=== PATIENT | male | born 1990 | race Caucasian/White ===

== ENCOUNTER 2021-08-21 18:50 | Emergency (ER) | payer OTHER, MEDICAID, SELFPAY ==
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
[2021-08-21 21:01] VITALS: BP 155/91; PULSE 106; RESP 16; TEMP 36.8; O2SAT 100; BMI 40.1
[2021-08-21 23:26] VITALS: BP 146/79; PULSE 90; RESP 20; TEMP 36.8; O2SAT 99
[2021-08-22] MEDS: Ibuprofen 800 MG TABLET PO (00:34)
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
== END 2021-08-22 01:45 | disposition home or self-care (01) ==
PROVIDERS: Emergency Provider Emergency Medicine; PCP Internal Medicine
DX: M54.50 Low back pain, unspecified (principal); M54.6 Pain in thoracic spine; Z79.899 Other long term (current) drug therapy
CPT/HCPCS: 72020; 72070; 99283

== ENCOUNTER 2022-01-31 12:34 | Emergency (ER) | payer OTHER, MEDICAID, SELFPAY ==
[2022-01-31 13:34] VITALS: BP 136/83; PULSE 111; RESP 18; TEMP 36.8; O2SAT 97; BMI 41.8
--- NOTE | 2022-01-31 14:00 | ED_ITS ---
HPI - General Adult General Chief complaint: Back Pain/Injury Stated complaint: lower l back inj at work Time Seen by Provider: 01/31/22 14:00 Source: patient Mode of arrival: ambulatory Limitations: no limitations History of Present Illness HPI narrative: Patient is a 31 year old male presenting to the emergency department today with low back pain. Patient states that 2 days ago he injured his low back while moving things at work. Patient denies any dizziness, lightheadedness, abdominal pain, nausea, vomiting, fever, chills, blurry vision, double vision, loss of vision, chest pain, difficulty breathing, shortness of breath, night sweats, pain with urination, increased urinary frequency, increased urinary urgency, blood in [his/her] urine or stool, syncope or a near syncopal episode, recent tr auma or falls, bowel incontinence, bladder incontinence, bowel retention, bladder retention, or any other complaints at this time. Onset (ago): day(s) (2) Location: back Radiation: non-radiation Severity: mild Severity scale (1-10): 2 Quality: dull Pain Consistency: constant Relieving factors: none Exacerbating factors: none Associated symptoms: denies other symptoms Treatments prior to arrival: none Related Data Previous Rx's Medication Instructions Recorded cyclobenzaprine 10 mg tablet 10 mg PO BEDTIME 5 Days #5 tab 08/22/21 ibuprofen 600 mg tablet 600 mg PO Q8H PRN #30 tab 08/22/21 cyclobenzaprine 10 mg tablet 10 mg PO TID PRN 7 Days #21 tab 01/31/22 Allergies Allergy/AdvReac Type Severity Reaction Status Date / Time No Known Allergies Allergy Verified 01/31/22 13:34 Review of Systems Constitutional: Constitutional: Reports no additional constitutional complaints, Denies chills, Denies fever(s) and Denies night sweats Eyes: Eyes: Reports no additional eye complaints, Denies blurry vision, Denies change in vision, Denies diplopia, Denies eye discharge, Denies loss of vision and Denies eye pain ENT: Denies dizziness Cardiovascular: Cardiovascular: Reports no additional cardiovascular complaints, Denies chest pain, Denies lightheadedness, Denies Loss of Consciousness and Denies dyspnea Respiratory: Respiratory: Reports no additional respiratory complaints and Denies dyspnea Gastrointestinal: Gastrointestinal: Reports no additional gastrointestinal complaints, Denies abdominal pain, Denies melena, Denies hematochezia, Denies change in bowel habits and Denies change in stool character Genitourinary: Genitourinary: Reports no additional male genitourinary complaints, Denies hematuria, Denies oliguria, Denies difficulty urinating, Denies dysuria, Denies urinary frequency, Denies urinary hesitancy, Denies urinary incontinence and Denies urinary urgency Musculoskeletal: Musculoskeletal: Reports no additional musculoskeletal complaints, Reports back pain, Denies numbness and Denies tingling Neurologic: Denies dizziness, Denies loss of vision, Denies numbness and Denies tingling Psychiatric: Psychiatric: Reports no additional psychiatric complaints Endocrine: Endocrine: Reports no additional endocrine complaints Hematologic/Lymphatic: Hematologic/Lymphatic: Reports no additional hematologic/lymphatic complaints Allergic/Immunologic: Allergic/Immunologic: Reports no additional allergic/immunologic complaints PMFSH Past Medical History Attestation statement: The following information was validated with the patient. Source: old records reviewed Medical History No known health problems Social History Social History Advance Directives: No Advance Directives Information Provided: Yes Physical Exam ED Vital Signs: Vital Signs - 24 hr 01/31/22 13:34 Temperature 98.3 F Pulse Rate 111 H Respiratory Rate 18 Blood Pressure 136/83 Pulse Oximetry 97 BMI result Body Mass Index 41.8 Const General: cooperative, no acute distress, alert and awake Nutritional Appearance: well nourished Orientation/consciousness: patient oriented x3 Limitations: no limitations [facility] Head: Yes normal to inspection and Yes atraumatic Ears: hearing grossly normal bilaterally and external ears normal General nose exam: Normal external nose present, no nasal discharge noted and no epistaxis Face and sinus: Yes normal facial exam, No abrasion and No laceration Mouth: Normal oral and palatal mucosa present, no drooling and no muffled voice Eyes General: appearance normal, both eyes and all related structures Periorbital: periorbital findings normal Eyelids: Yes eyelids normal Conjunctivae: conjunctivae normal Pupils: Equal, round and reactive pupils present EOM: EOMs intact bilaterally Neck Neck: Yes normal visual inspection, Yes full ROM and Yes no lymphadenopathy Chest Chest palpation & inspection: normal inspection of the chest Resp Effort & Inspection: normal respiratory effort and able to speak in complete sentences Auscultation: clear to auscultation bilaterally Cardio Rate: regular rate Rhythm: regular rhythm GI Inspection: Yes normal to inspection General: Yes no CVA tenderness Back/Spine/Pelvis Back: no CVA tenderness Cervical Spine: normal cervical lordosis Thoracic/Lumbar Spine: thoracic and lumbar spine normal to inspection and thoraco-lumbar ROM normal Neuro General: patient oriented x3 and moves all extremities Cranial nerves: Yes Equal, round and reactive pupils present Cognition (Neuro): normal cognition Motor exam (neuro): 5/5 motor strength present throughout Sensory Exam: Normal double simultaneous stimulation for sensation Coordination: [id number] test normal Extrem General: Yes normal to inspection, Yes full ROM and Yes capillary refill normal Psych Appearance: grossly normal Mental Status: mental status grossly normal Affect: normal affect Attitude: cooperative Thought process: Normal thought process present Thought content: Normal thought content present Insight: Good insight present (Psych) Medical Decision Making MDM Narrative Medical decision making narrative: Patient is a 31 year old male presenting to the emergency department today with low back pain. Patient's physical exam was unremarkable. I explained my physical exam findings to the patient. I answered all questions asked by the patient. Patient received IM Toradol and PO Flexeril which he stated helped his symptoms significantly. I stressed the importance of the patient taking his medication as prescribed. I stressed the importance of the patient following up with his primary care provider. I stressed the importance of the patient returning to the emergency department immediately if his symptoms were to worsen or if he were to develop any dizziness, shortness of breath, difficulty breathing, chest pain, blurry vision, loss of vision, nausea, vomiting, abdominal pain, fever, chills, back pain, or any other complaints. Patient verbalized agreement and understanding with this treatment plan and discharge. Differential Diagnosis Differential Diagnosis: low back pain Medical Records Medical records reviewed: Yes I reviewed the patient's medical records. Discharge Plan Discharge Clinical Impression: Strain of lumbar region Patient Disposition: Home, Self-Care Instructions: Acute Low Back Pain (ED) Additional Instructions: Follow up with your primary care provider. Return to the emergency department immediately if your symptoms worsen or if you develop any dizziness, shortness of breath, difficulty breathing, chest pain, blurry vision, loss of vision, brianne sea, vomiting, abdominal pain, fever, chills, back pain, or any other complaints. Prescriptions: New cyclobenzaprine 10 mg tablet 10 mg PO TID PRN (Reason: muscle spasm) 7 Days Qty: 21 0RF No Action cyclobenzaprine 10 mg tablet 10 mg PO BEDTIME 5 Days Qty: 5 0RF ibuprofen 600 mg tablet 600 mg PO Q8H PRN (Reason: pain) Qty: 30 0RF [place] [facility] [place] [facility] [place] [facility] [place] [facility] [place] [facility] [place] [facility]] Stand Alone Forms: Work/School Release Interventions: ED Discharge Assessment Last Done: 01/31/22 14:21 Discharge Date/Time: 01/31/22 14:21 Print Language: Serbian
[2022-01-31] MEDS: Cyclobenzaprine HCl 10 MG TABLET PO (14:14)
[2022-01-31] MEDS: Ketorolac Tromethamine 15 MG/ML VIAL IM (14:15)
== END 2022-01-31 14:21 | disposition home or self-care (01) ==
PROVIDERS: Emergency Provider Emergency Medicine
DX: M54.50 Low back pain, unspecified (principal); Z79.899 Other long term (current) drug therapy
CPT/HCPCS: 96372; 99283; 99284; J1885

== ENCOUNTER → 2022-02-03 08:50 | Outpatient (BNVA) | payer OTHER, SELFPAY | PROVIDERS: Visit Provider Physician Assistant | DX: S39.012A Strain of muscle, fascia and tendon of lower back, initial encounter (principal); X58.XXXA Exposure to other specified factors, initial encounter | CPT/HCPCS: 99203 ==

== ENCOUNTER → 2022-02-10 14:48 | Outpatient (BNVA) | payer OTHER, SELFPAY | PROVIDERS: PCP Internal Medicine; Visit Provider Physician Assistant | DX: S39.012A Strain of muscle, fascia and tendon of lower back, initial encounter (principal); X58.XXXA Exposure to other specified factors, initial encounter | CPT/HCPCS: 99214 ==

== ENCOUNTER → 2022-02-19 15:15 | Outpatient (BNVA) | payer OTHER, SELFPAY | PROVIDERS: PCP Internal Medicine; Visit Provider Physician Assistant | DX: S39.012D Strain of muscle, fascia and tendon of lower back, subsequent encounter (principal); X58.XXXA Exposure to other specified factors, initial encounter | CPT/HCPCS: 99213 ==

== ENCOUNTER → 2022-03-01 14:59 | Outpatient (BNVA) | payer OTHER, SELFPAY | PROVIDERS: PCP Internal Medicine; Visit Provider Internal Medicine | DX: M54.9 Dorsalgia, unspecified (principal) | CPT/HCPCS: 99213 ==

== ENCOUNTER 2022-03-04 17:00 | Outpatient (RCR) | payer OTHER, MEDICAID, SELFPAY ==
--- NOTE | 2022-02-08 13:55 | MHC.PT.EP ---
[facility] [place] Office [place] Office [place] Office [address] Andre Ibrahim [address] [phone] F: [phone] F: [phone] F: [phone] F: [phone] Physical Therapy Plan of Care Date of Evaluation: Date of Surgery: Diagnosis: L lumbar strain Assessment: 31 y/o M referred to PT from work connection with L lumbar strain. He works in maintenance at [employer]. He was working 01/29/22 and went to inspect w/c; when he bent over to flip over w/c to check the wheels, he experienced LBP. He sat down due to pain, but continued working. He went to work connection later that day but they were closed. He then went to ED 2 days later. He is currently OOW with f/u in 2 days at work connection. He reports sitting, donning/doffing shoes, sleeping, rolling in bed, and bending are the most painful. Walking sometimes bothers him. Examination shows decreased lumbar and hip AROM, decreased hip flexor/HS/piriformis/quad length, decreased core strength, hypomobile accessory lumbar mobility and pain. Recommend PT 2x/week for 4 weeks to address impairments, implement HEP, and optimize functional mobility. Frequency and Duration: The patient will be seen 2x/week for 4 weeks Short Term Goals: 2 weeks 1 I with HEP 2. Decrease pain levels by 50% 3 Improve HS length to WFL B Medical Assistant Secretary Goals: 4 weeks 1. I with HEP and self management of sx 2. Pt will be able to lift 20# with proper mechanics and pain < 3/10 3. Pt will be able to walk > 30 min with pain < 3/10 Treatment Plan: Modalities to reduce pain, spasms and effusion. Manual therapy to restore motion and function. Therapeutic exercise to improve strength and flexibility. Neuromuscular re-education for posture and balance. Therapeutic activities to return to functional activities of daily living. Electronically signed by: Rachael Bustillo PT Please sign and return to therapist. Thank you for your referral.
--- NOTE | 2022-03-04 18:05 | MHC.PT.DC ---
[facility] [place] Office [place] Office [place] Office [address] Andre Ibrahim [address] [phone] F: [phone] F: [phone] F: [phone] F: [phone] Physical Therapy Discharge Report Diagnosis: L lumbar strain Date of Surgery: Date of Evaluation: 02/08/22 Date of Discharge: 03/04/22 Treatments to Date: 7 Cancellations to Date: 1 No Shows to Date: 0 Discharge Status: Improved Function Discharge Summary: 03/04/2022: Pt has made some progress since beginning skilled PT in terms of reducing pain and making progress towards his goals but he appears to have reached a plateau with his progress. His pain levels are lower and he appears to have some better tolerance to functional mobility however he reports he continues to have pain when doing things at home. He has unfortunately demonstrated only fair compliance with his HEP and participation in his sessions in person as he is often distracted on his phone rather than focusing on his exercises. Discussion had with pt regarding compliance with HEP in order to get max benefits from PT. At this time max benefits of PT have been provided as he has reached a plateau and skilled PT is no longer indicated. Recommend pt continue with HEP at home for further management of his pain/sx and attend follow ups with referring provider as scheduled. Electronically signed by: Rebecca Reid, PT, DPT, ATC Please sign and return to therapist. Thank you for your referral.
== END 2022-03-04 18:06 | disposition home or self-care (01) ==
LOC: HO.PTCHIC 17:00
PROVIDERS: PCP Internal Medicine; Visit Provider Physician Assistant
DX: S39.012D Strain of muscle, fascia and tendon of lower back, subsequent encounter (principal); Y99.0 Civilian activity done for income or pay
CPT/HCPCS: 97110; 97140; 97161

== ENCOUNTER → 2022-03-11 14:42 | Outpatient (BNVA) | payer OTHER, SELFPAY | PROVIDERS: PCP Internal Medicine; Visit Provider Internal Medicine | DX: M54.50 Low back pain, unspecified (principal) | CPT/HCPCS: 99213 ==

== ENCOUNTER → 2022-04-01 10:00 | Outpatient (BNVA) | payer OTHER, SELFPAY | PROVIDERS: PCP Internal Medicine; Visit Provider Internal Medicine | DX: M54.42 Lumbago with sciatica, left side (principal); M54.41 Lumbago with sciatica, right side | CPT/HCPCS: 99213 ==

== ENCOUNTER 2022-04-02 15:17 | Outpatient (REF) | payer MEDICAID, SELFPAY ==
[2022-04-02 15:43] LABS: Basophils Percent Auto 0.3 % (0-2); Eosinophils Absolute Auto 0.2 X10*3/uL (0.0-0.4); Eosinophils Percent Auto 1.8 % (0-4); Hematocrit 44.8 % (42.0-52.0); Hemoglobin 14.5 g/dl (14.0-18.0); Imm Gran Abs Auto 0.08 X10*3/uL (0.00-0.03); Imm Gran Pct Auto 0.7 % (0.0-0.4); Lymphocytes Percent Auto 27.9 % (20-40); MANUAL DIFF FLAG NO; Mean Corpuscular HGB Conc 32.4 g/dl (31.0-36.0); Mean Corpuscular Hemoglobin 28.7 pg (27.0-33.0); Mean Corpuscular Volume 88.5 fL (80.0-98.0); Mean Platelet Volume 9.3 fL (9.4-12.4); Monocytes Absolute Auto 0.8 X10*3/uL (0.1-1.2); Monocytes Percent Auto 7.5 % (2-11); Neutrophils Absolute Auto 6.6 x10*3/uL (2.0-8.3); Neutrophils Percent Auto 61.8 % (45-73); Platelet Count 280 X10*3/uL (160-400); Red Blood Count 5.06 X10*6/uL (4.60-5.80); Red Cell Distribution Width 14.3 % (11.0-16.0); White Blood Count 10.7 X10*3/uL (4.8-10.8)
[2022-04-02 16:41] LABS: Alanine Aminotransferase 130 U/L (0-40); Albumin Level 4.3 g/dL (3.5-5.0); Alkaline Phosphatase 107 U/L (39-117); Anion Gap 14 (12-20); Aspartate Amino Transferase 65 U/L (5-37); Bilirubin Total 0.5 mg/dL (0.0-1.0); Blood Urea Nitrogen 10 mg/dL (9-16); Calcium 9.4 mg/dL (8.4-10.2); Carbon Dioxide 28 mmol/L (22-29); Chloride 103 mmol/L (96-108); Cholesterol 197 mg/dL; Estimated Glomerular Filt Rate > 60; Glucose Random 112 mg/dL (60-115); Potassium 4.2 mmol/L (3.3-5.1); Sodium 141 mmol/L (135-145); Total Protein 7.3 g/dL (6.5-8.0)
[2022-04-02 16:59] LABS: Thyroid Stimulating Hormone 1.21 uIU/mL (0.32-4.0)
== END 2022-04-02 15:18 | disposition home or self-care (01) ==
LOC: HO.LAB 15:17
PROVIDERS: PCP Internal Medicine; Visit Provider Internal Medicine
DX: G47.33 Obstructive sleep apnea (adult) (pediatric) (principal); R00.0 Tachycardia, unspecified; Z83.3 Family history of diabetes mellitus
CPT/HCPCS: 36415; 80053; 82465; 84443; 85025

== ENCOUNTER 2022-04-28 14:40 | Outpatient (REF) | payer MEDICAID, SELFPAY ==
[2022-04-28 16:16] LABS: Alanine Aminotransferase 166 U/L (0-40); Albumin Level 4.5 g/dL (3.5-5.0); Alkaline Phosphatase 114 U/L (39-117); Aspartate Amino Transferase 81 U/L (5-37); Bilirubin Direct 0.2 mg/dL (0.0-0.5); Bilirubin Total 0.6 mg/dL (0.0-1.0); Total Protein 7.5 g/dL (6.5-8.0)
[2022-04-29 08:31] LABS: HBS Num1 19.16 mIU/mL (0-7.99); HBsAGNum1 0.22 S/CO (0.00-0.99); Hepatitis B Surface Antigen Negative (Negative); ~HepC Num1 0.05 S/CO (0.00-0.79); ~Hepatitis B Surface Antibody REACTIVE (Nonreactive); ~Hepatitis C Antibody Nonreactive (Nonreactive)
== END 2022-04-28 14:41 | disposition home or self-care (01) ==
LOC: HO.LAB 14:40
PROVIDERS: PCP Internal Medicine; Visit Provider Internal Medicine
DX: R79.89 Other specified abnormal findings of blood chemistry (principal)
CPT/HCPCS: 36415; 80076; 86706; 86803; 87340

== ENCOUNTER → 2022-04-30 12:57 | Outpatient (BNVA) | payer OTHER, SELFPAY | PROVIDERS: PCP Internal Medicine; Visit Provider Internal Medicine | DX: S39.012D Strain of muscle, fascia and tendon of lower back, subsequent encounter (principal); X58.XXXD Exposure to other specified factors, subsequent encounter | CPT/HCPCS: 99213 ==

== ENCOUNTER → 2022-05-21 13:24 | Outpatient (BNVA) | payer OTHER, SELFPAY | PROVIDERS: PCP Internal Medicine; Visit Provider Internal Medicine | DX: M54.50 Low back pain, unspecified (principal) | CPT/HCPCS: 99213 ==

== ENCOUNTER 2022-06-02 08:56 | Outpatient (REF) | payer OTHER, MEDICAID, SELFPAY ==
--- NOTE | ~2022-06-02 | US_ITS ---
EXAMINATION: US ABDOMEN COMPLETE CLINICAL INFORMATION: Elevation of levels of liver transaminase levels. COMPARISON: CT abdomen and pelvis 04/17/2018. TECHNIQUE: Real-time imaging of the abdominal viscera. FINDINGS: PANCREAS: The pancreatic head and body are unremarkable. The tail is obscured by gas. ABDOMINAL AORTA: The proximal, mid, and distal segments are normal in caliber. INFERIOR VENA CAVA: Visualized portions are normal. LIVER: The liver is normal in size. The liver contour is normal. There is diffuse increased liver parenchymal echogenicity, consistent with hepatic steatosis. Focal fatty sparing along the gallbladder fossa. No focal hepatic lesion. There is no intrahepatic biliary duct dilatation seen. GALLBLADDER: Normal. The gallbladder is physiologically distended without evidence of stones, sludge, polyps, wall thickening or pericholecystic fluid. COMMON BILE DUCT: Normal in caliber measuring 0.4 cm in diameter. RIGHT KIDNEY: Normal. No hydronephrosis. No renal calculi or focal parenchymal lesions. The kidney measures 11.2 cm in maximum dimension. LEFT KIDNEY: Normal. No hydronephrosis. No renal calculi or focal parenchymal lesions. The kidney measures 12.1 cm in maximum dimension. SPLEEN: Normal. The spleen measures 12.5 cm in maximum dimension. FREE FLUID: None. IMPRESSION.: Hepatic steatosis. No liver lesions.
== END 2022-06-02 08:57 | disposition home or self-care (01) ==
LOC: HO.HMGCX 08:56
PROVIDERS: PCP Internal Medicine; Visit Provider Internal Medicine
DX: R74.01 Elevation of levels of liver transaminase levels (principal)
CPT/HCPCS: 76700

== ENCOUNTER → 2022-06-04 14:41 | Outpatient (BNVA) | payer OTHER, SELFPAY | PROVIDERS: PCP Internal Medicine; Visit Provider Internal Medicine | DX: M54.50 Low back pain, unspecified (principal) | CPT/HCPCS: 99213 ==

== ENCOUNTER → 2022-06-25 14:21 | Outpatient (BNVA) | payer OTHER, SELFPAY | PROVIDERS: PCP Internal Medicine; Visit Provider Internal Medicine | DX: S39.012D Strain of muscle, fascia and tendon of lower back, subsequent encounter (principal); X58.XXXD Exposure to other specified factors, subsequent encounter | CPT/HCPCS: 99213 ==

== ENCOUNTER → 2022-07-12 09:09 | Outpatient (BNVA) | payer OTHER, SELFPAY | PROVIDERS: PCP Internal Medicine; Visit Provider Internal Medicine | DX: S39.012D Strain of muscle, fascia and tendon of lower back, subsequent encounter (principal); X58.XXXD Exposure to other specified factors, subsequent encounter; M25.562 Pain in left knee | CPT/HCPCS: 99213 ==

== ENCOUNTER → 2022-07-26 10:15 | Outpatient (BNVA) | payer OTHER, SELFPAY | PROVIDERS: PCP Internal Medicine; Visit Provider Internal Medicine | DX: S39.012D Strain of muscle, fascia and tendon of lower back, subsequent encounter (principal); X58.XXXD Exposure to other specified factors, subsequent encounter; M25.562 Pain in left knee | CPT/HCPCS: 99214 ==

== ENCOUNTER 2022-07-27 12:55 | Outpatient (REF) | payer OTHER, SELFPAY ==
--- NOTE | ~2022-07-27 | MR_ITS ---
EXAMINATION: INCOMPLETE AND LIMITED MR LUMBAR SPINE WITHOUT CONTRAST CLINICAL INFORMATION: Lifting injury and pain. COMPARISON: None TECHNIQUE: Only sagittal T1 and T2-weighted imaging obtained with a localizer acquisition. Patient unable to complete the study due to discomfort. MR/MR lumbar spine wo con LIMITED FINDINGS AND IMPRESSION: The marrow signal is homogeneous and the discs are fairly well hydrated. The distal cord, conus tip, and cauda equina nerve roots are normal. There is no central canal stenosis. There are no compression fractures or subluxations. At the L4-L5 level, there is very mild reduced intradiscal signal and a mild disc bulge with a left subarticular zone to left foraminal disc protrusion resulting in moderate left foraminal encroachment and potential mass effect upon the left L5 nerve root; clinically correlate.
== END 2022-07-27 12:56 | disposition home or self-care (01) ==
LOC: HO.MRI 12:55
PROVIDERS: Visit Provider Internal Medicine
DX: M54.50 Low back pain, unspecified (principal)
CPT/HCPCS: 72148

== ENCOUNTER → 2022-08-12 10:10 | Outpatient (BNVA) | payer OTHER, SELFPAY | PROVIDERS: PCP Internal Medicine; Visit Provider Internal Medicine | DX: Z13.89 Encounter for screening for other disorder (principal) ==

== ENCOUNTER → 2022-09-03 10:27 | Outpatient (BNVA) | payer OTHER, SELFPAY | PROVIDERS: PCP Internal Medicine; Visit Provider Internal Medicine | DX: M54.50 Low back pain, unspecified (principal) | CPT/HCPCS: 99213 ==

== ENCOUNTER → 2022-09-17 11:13 | Outpatient (BNVA) | payer OTHER, SELFPAY | PROVIDERS: PCP Internal Medicine; Visit Provider Internal Medicine | DX: M54.50 Low back pain, unspecified (principal) | CPT/HCPCS: 99213 ==

== ENCOUNTER → 2022-10-08 10:57 | Outpatient (BNVA) | payer OTHER, SELFPAY | PROVIDERS: PCP Internal Medicine; Visit Provider Internal Medicine | DX: M54.9 Dorsalgia, unspecified (principal); R10.84 Generalized abdominal pain | CPT/HCPCS: 99213 ==

== ENCOUNTER → 2022-11-11 10:26 | Outpatient (BNVA) | payer OTHER, SELFPAY | PROVIDERS: PCP Internal Medicine; Visit Provider Internal Medicine | DX: M54.50 Low back pain, unspecified (principal); R20.0 Anesthesia of skin | CPT/HCPCS: 99213 ==

== ENCOUNTER → 2022-12-28 10:44 | Outpatient (BNVA) | payer OTHER, SELFPAY | PROVIDERS: PCP Internal Medicine; Visit Provider Internal Medicine | DX: M54.50 Low back pain, unspecified (principal) | CPT/HCPCS: 99213 ==

== ENCOUNTER → 2023-01-27 12:53 | Outpatient (BNVA) | payer OTHER, SELFPAY | PROVIDERS: PCP Internal Medicine; Visit Provider Internal Medicine | DX: M54.50 Low back pain, unspecified (principal) | CPT/HCPCS: 99213 ==

== ENCOUNTER → 2023-03-14 11:04 | Outpatient (BNVA) | payer OTHER, SELFPAY | PROVIDERS: PCP Internal Medicine; Visit Provider Internal Medicine | DX: M54.9 Dorsalgia, unspecified (principal) | CPT/HCPCS: 99213 ==

== ENCOUNTER 2023-03-30 17:39 | Emergency (ER) | payer MEDICAID, SELFPAY ==
--- NOTE | ~2023-03-30 | CT_ITS ---
EXAMINATION: CT ABDOMEN AND PELVIS WITHOUT CONTRAST CLINICAL INFORMATION: Back pain, hematuria. COMPARISON: Abdomen ultrasound from 06/02/2022. Abdomen CT from 04/17/2018. TECHNIQUE: Multidetector volumetric imaging was performed from the superior aspect of the liver through the pubic symphysis. Sagittal and coronal reformatted images were obtained on the technologist's workstation. This CT examination was performed using dose optimization techniques as appropriate, variously including the following: *Automated exposure control *Adjustment of mA and/or kV according to patient size (this includes techniques or standardized protocols for targeted exams where dose is matched to indication/reason for exam; i.e. extremities or head) *Use of iterative reconstruction technique DLP: 970 mGy-cm FINDINGS: LUNG BASES: Mild linear opacity of atelectasis in the inferior lingula. No pulmonary consolidation or pleural effusion. LIVER: Diffuse hepatic steatosis with small region of fat sparing around the gallbladder fossa. Otherwise, liver is unremarkable. GALLBLADDER AND BILIARY TREE: Gallbladder is without radiopaque stones, wall thickening or pericholecystic fluid. No dilated bile ducts. PANCREAS: Normal. No edema, pancreatic ductal dilatation or mass. SPLEEN: Spleen is normal in size. A structure that measures 3.2 cm AP in the left upper quadrant medial to the spleen is unchanged compared to 10/02/2013 and consistent with a splenule. This projects anterosuperior to the left adrenal gland. ADRENAL GLANDS: Normal. KIDNEYS AND URETERS: Kidneys are normal in size. 0.3 cm calyceal stone is present in the mid left kidney. No ureteral stones or hydroureteronephrosis. No perinephric edema or perinephric fluid collection. BLADDER: Normal. No calculi or wall thickening. BOWEL AND PERITONEUM: Stomach is unremarkable. No dilated loops of bowel. The appendix is normal. No overt bowel wall thickening or mesenteric fat stranding. No free fluid or pneumoperitoneum. ABDOMINAL WALL: There appears to be chronic mild protrusion of extraperitoneal fat into the proximal right inguinal canal. No acute or significant findings in the abdominal wall. VASCULATURE: Unremarkable. LYMPH NODES: No pathologic sized lymph nodes in the abdomen or pelvis. No inguinal lymphadenopathy. PELVIC VISCERA: Unremarkable. MUSCULOSKELETAL: The visualized lower thoracic and lumbar vertebra have normal density, height and alignment. No fracture or subluxation. No spinal canal stenosis. The pelvic bones and proximal femurs are intact. CT/CT abdomen pelvis wo IV con IMPRESSION: * No acute imaging abnormalities within the abdomen or pelvis. * Diffuse hepatic steatosis. * Small stone of the left kidney. No ureteral stones or hydroureteronephrosis.
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
[2023-03-30 17:59] VITALS: BP 120/81; PULSE 88; RESP 16; TEMP 36.2; O2SAT 100; BMI 41.3
[2023-03-30 18:44] LABS: Appearance Urine Clear; Color Urine Orange; Glucose Urine UA Negative (Negative); Leukocyte Esterase Urine Trace (Negative); Nitrite Urine Negative (Negative); Specific Gravity - Urine 1.015 (1.005-1.025); UMIC TRIGGER UACC YES; Urine Blood Large (3+) (Negative); Urine Ketones Trace mg/dL (Negative); Urine Protein 100 (2+) mg/dL (Neg-Trace)
[2023-03-30 18:53] LABS: Bacteria Urine None Seen (None Seen); RBC Urine >20 /HPF (0-2); Squamous Epithelial Cell Urine 0-2 /HPF (0-2); UACC Culture Trigger YES
[2023-03-30 19:10] LABS: MANUAL DIFF FLAG NO
[2023-03-30 19:14] LABS: Basophils Percent Auto 0.3 % (0-2); Eosinophils Percent Auto 0.2 % (0-4); Hematocrit 45.1 % (42.0-52.0); Hemoglobin 14.2 g/dl (14.0-18.0); Imm Gran Abs Auto 0.06 X10*3/uL (0.00-0.03); Imm Gran Pct Auto 0.5 % (0.0-0.4); Lymphocytes Absolute Auto 1.7 X10*3/uL (1.2-4.9); Lymphocytes Percent Auto 14.8 % (20-40); Mean Corpuscular HGB Conc 31.5 g/dl (31.0-36.0); Mean Corpuscular Hemoglobin 28.7 pg (27.0-33.0); Mean Corpuscular Volume 91.1 fL (80.0-98.0); Mean Platelet Volume 9.4 fL (9.4-12.4); Monocytes Absolute Auto 0.4 X10*3/uL (0.1-1.2); Monocytes Percent Auto 3.4 % (2-11); Neutrophils Absolute Auto 9.5 x10*3/uL (2.0-8.3); Neutrophils Percent Auto 80.8 % (45-73); Platelet Count 222 X10*3/uL (160-400); Red Blood Count 4.95 X10*6/uL (4.60-5.80); Red Cell Distribution Width 13.2 % (11.0-16.0); White Blood Count 11.8 X10*3/uL (4.8-10.8)
[2023-03-30 20:08] LABS: Alanine Aminotransferase 67 U/L (0-40); Albumin Level 4.4 g/dL (3.5-5.0); Alkaline Phosphatase 96 U/L (39-117); Anion Gap 18 (12-20); Aspartate Amino Transferase 32 U/L (5-37); Bilirubin Direct 0.2 mg/dL (0.0-0.5); Bilirubin Total 0.4 mg/dL (0.0-1.0); Blood Urea Nitrogen 10 mg/dL (9-16); Calcium 9.4 mg/dL (8.4-10.2); Carbon Dioxide 20 mmol/L (22-29); Chloride 105 mmol/L (96-108); Creatinine Clr Calc Pharmacy 118.4; Estimated Glomerular Filt Rate > 60; Glucose Random 116 mg/dL (60-115); Potassium 4.2 mmol/L (3.3-5.1); Sodium 139 mmol/L (135-145); Total Protein 7.6 g/dL (6.5-8.0)
[2023-03-30 20:51] VITALS: BP 139/64; PULSE 86; RESP 16; O2SAT 100
== END 2023-03-30 21:59 | disposition home or self-care (01) ==
PROVIDERS: Physician Assistant; Emergency Provider Emergency Medicine; PCP Internal Medicine
DX: N39.0 Urinary tract infection, site not specified (principal); R10.9 Unspecified abdominal pain
CPT/HCPCS: 36415; 74176; 80048; 80076; 81001; 83735; 85025; 87086; 99284

== ENCOUNTER 2023-05-19 13:06 | Outpatient (REF) | payer MEDICAID, SELFPAY ==
[2023-05-19 13:32] LABS: MANUAL DIFF FLAG NO
[2023-05-19 14:11] LABS: Basophils Percent Auto 0.3 % (0-2); Eosinophils Percent Auto 0.5 % (0-4); Hematocrit 46.5 % (42.0-52.0); Hemoglobin 14.7 g/dl (14.0-18.0); Imm Gran Abs Auto 0.02 X10*3/uL (0.00-0.03); Imm Gran Pct Auto 0.2 % (0.0-0.4); Lymphocytes Absolute Auto 2.7 X10*3/uL (1.2-4.9); Lymphocytes Percent Auto 31.3 % (20-40); Mean Corpuscular HGB Conc 31.6 g/dl (31.0-36.0); Mean Corpuscular Hemoglobin 28.2 pg (27.0-33.0); Mean Corpuscular Volume 89.1 fL (80.0-98.0); Mean Platelet Volume 9.9 fL (9.4-12.4); Monocytes Absolute Auto 0.3 X10*3/uL (0.1-1.2); Monocytes Percent Auto 3.3 % (2-11); Neutrophils Absolute Auto 5.6 x10*3/uL (2.0-8.3); Neutrophils Percent Auto 64.4 % (45-73); Platelet Count 249 X10*3/uL (160-400); Red Blood Count 5.22 X10*6/uL (4.60-5.80); Red Cell Distribution Width 13.4 % (11.0-16.0); White Blood Count 8.7 X10*3/uL (4.8-10.8)
[2023-05-19 14:50] LABS: Erythrocyte Sedimentation Rate 7 MM/HR (0-15)
[2023-05-19 15:12] LABS: Alanine Aminotransferase 64 U/L (0-40); Albumin Level 4.7 g/dL (3.5-5.0); Alkaline Phosphatase 88 U/L (39-117); Anion Gap 11 (12-20); Aspartate Amino Transferase 32 U/L (5-37); Bilirubin Total 0.7 mg/dL (0.0-1.0); Blood Urea Nitrogen 12 mg/dL (9-16); C Reactive Protein 0.41 mg/dL (< or = 0.50); Calcium 9.9 mg/dL (8.4-10.2); Carbon Dioxide 29 mmol/L (22-29); Chloride 107 mmol/L (96-108); Estimated Glomerular Filt Rate > 60; Glucose Random 120 mg/dL (60-115); Sodium 143 mmol/L (135-145); Total Protein 7.8 g/dL (6.5-8.0)
[2023-05-19 15:20] LABS: Rheumatoid Factor < 13.0 IU/mL (<15.0)
[2023-05-24 11:35] LABS: Anti Nuclear Antibody Screen NEGATIVE (NEGATIVE)
== END 2023-05-19 13:07 | disposition home or self-care (01) ==
LOC: HO.LAB 13:06
PROVIDERS: PCP Internal Medicine; Visit Provider Internal Medicine
DX: G47.33 Obstructive sleep apnea (adult) (pediatric) (principal); M54.9 Dorsalgia, unspecified; R79.89 Other specified abnormal findings of blood chemistry
CPT/HCPCS: 36415; 80053; 82550; 85025; 85652; 86038; 86140; 86431

== ENCOUNTER → 2023-05-31 13:19 | Outpatient (BNVA) | payer OTHER, SELFPAY | PROVIDERS: PCP Internal Medicine; Visit Provider Internal Medicine | DX: M54.9 Dorsalgia, unspecified (principal) | CPT/HCPCS: 99213 ==

== ENCOUNTER 2023-08-18 09:12 | Outpatient (REF) | payer MEDICAID, SELFPAY ==
[2023-08-18 10:57] LABS: Alanine Aminotransferase 49 U/L (0-40); Albumin Level 4.5 g/dL (3.5-5.0); Alkaline Phosphatase 87 U/L (39-117); Anion Gap 13 (12-20); Aspartate Amino Transferase 25 U/L (5-37); Bilirubin Total 0.6 mg/dL (0.0-1.0); Blood Urea Nitrogen 15 mg/dL (9-16); Calcium 9.4 mg/dL (8.4-10.2); Carbon Dioxide 27 mmol/L (22-29); Chloride 103 mmol/L (96-108); Estimated Glomerular Filt Rate > 60; Glucose Random 105 mg/dL (60-115); Potassium 3.8 mmol/L (3.3-5.1); Sodium 139 mmol/L (135-145); Total Protein 7.7 g/dL (6.5-8.0)
[2023-08-18 11:02] LABS: Estimated Average Glucose 108 mg/dL; Hemoglobin A1c % 5.4 % (<6.0)
== END 2023-08-18 09:13 | disposition home or self-care (01) ==
LOC: HO.LAB 09:12
PROVIDERS: PCP Internal Medicine; Visit Provider Internal Medicine
DX: R79.89 Other specified abnormal findings of blood chemistry (principal); R73.03 Prediabetes
CPT/HCPCS: 36415; 80053; 83036

== ENCOUNTER 2023-08-19 11:00 | Outpatient (REF) | payer MEDICAID, SELFPAY ==
[2023-08-19 13:04] LABS: Appearance Urine Clear; Color Urine Yellow; Glucose Urine UA Negative (Negative); Leukocyte Esterase Urine Negative (Negative); Nitrite Urine Negative (Negative); Specific Gravity - Urine 1.025 (1.005-1.025); Urine Blood Negative (Negative); Urine Ketones Negative (Negative); Urine Protein Negative (Neg-Trace)
[2023-08-19 13:11] LABS: Estimated Average Glucose 108 mg/dL; Hemoglobin A1c % 5.4 % (<6.0)
[2023-08-19 13:13] LABS: Anion Gap 11 (12-20); Blood Urea Nitrogen 14 mg/dL (9-16); Calcium 9.9 mg/dL (8.4-10.2); Carbon Dioxide 28 mmol/L (22-29); Chloride 104 mmol/L (96-108); Estimated Glomerular Filt Rate > 60; Glucose Random 101 mg/dL (60-115); Potassium 3.9 mmol/L (3.3-5.1); Sodium 139 mmol/L (135-145)
[2023-08-19 13:30] LABS: HIV AB/AG Nonreactive (Nonreactive); HIV Num 1 0.06 S/CO (0.00-0.99)
[2023-08-19 13:32] LABS: Syphilis Screen Nonreactive (Nonreactive)
[2023-08-19 14:28] LABS: CT PCR NOT DETECTED (Not Detect.); NG PCR NOT DETECTED (Not Detect.)
== END 2023-08-19 11:01 | disposition home or self-care (01) ==
LOC: HO.10HDL 11:00
PROVIDERS: Visit Provider Internal Medicine
DX: Z11.4 Encounter for screening for human immunodeficiency virus [HIV] (principal); E66.01 Morbid (severe) obesity due to excess calories; R73.03 Prediabetes; G47.33 Obstructive sleep apnea (adult) (pediatric)
CPT/HCPCS: 0353U; 80048; 81003; 83036; 86780; 87389

== ENCOUNTER → 2023-09-14 10:28 | Outpatient (BNVA) | payer OTHER, SELFPAY | PROVIDERS: PCP Internal Medicine; Visit Provider Internal Medicine | DX: M54.9 Dorsalgia, unspecified (principal) | CPT/HCPCS: 99213 ==

== ENCOUNTER 2023-09-30 09:44 | Outpatient (AMB) | payer MEDICAID, SELFPAY ==
--- NOTE | 2023-09-30 10:33 | MHC.OFFVIS ---
Intake Intake Visit Reasons: skin lesion scrotum Intake Note: New Patient presents for initial visit for scrotal lesion Urology Medications: none Blood Thinner: none Senior It Auditor Required: No Accompanied by: Self / Same As Patient Allergies No Known Allergies Allergy (Verified 10/01/23 21:40) Medication List - Last Reconciled 10/01/23 by SEAN Arias cyclobenzaprine 10 mg PO TID PRN 7 days naproxen 375 mg PO BID HPI HPI Comments History of Present Illness Details Randall is a very pleasant 33-year-old male patient of Dr. Holder. He has a past medical history of obesity, obstructive sleep apnea, tachycardia, low-back pain, hypertension, fatty liver, and prediabetes. He presents to the office today as a new patient for folliculitis. In discussion with the patient today he reports to be doing and feeling well. He reports noting a pimple like area to the right side of pubic mons. In assessment of the patient today the penis is uncircumcised. There is a very small area approximately 1 mm of folliculitis/pimple like area to the right side of the pubic mons with no drainage noted. There are no other lesions, lumps, and or masses noted throughout the area. The scrotum does appear dry otherwise no abnormalities noted. Discussed at length proper hygiene of the pubic area. He otherwise denies any bothersome urinary issues or concerns. He denies urinary urgency, urinary frequency, incontinence, nocturia, hematuria, dysuria, foul smelling urine, changes to urinary stream, flank pain, fever, and or chills. He is happy with his current voiding parameters. In office urinalysis results reviewed with the patient today. He otherwise offers no other issues or concerns at this time. [facility] Medical History Other obesity due to excess calories Obstructive sleep apnea (adult) (pediatric) Tachycardia, unspecified Encounter for general adult medical examination without abnormal findings Low back pain, unspecified Family history of diabetes mellitus Abnormal results of liver function studies Morbid (severe) obesity due to excess calories Essential (primary) hypertension Fatty (change of) liver, not elsewhere classified External otitis of left ear Pre-diabetes No known health problems Social History Alcohol intake: never Review of Systems Const Reports as per [facility] Eyes Reports no additional complaints ENT Reports no additional complaints Card Reports as per [facility] GI Reports no additional complaints Reports as per [facility] Musc Reports as per [facility] Neuro Reports no additional complaints Psych Reports no additional complaints Endo Reports as per HPI Charli/Lymph Reports no additional complaints Aller/Immun Reports no additional complaints Physical Exam Const General: cooperative, comfortable, no acute distress, well developed, alert and awake Nutritional Appearance: overweight Orientation/consciousness: patient oriented x3 Limitations: ambulation with cane HEENT Head: Yes normal to inspection, Yes normocephalic and Yes atraumatic Ears: hearing grossly normal bilaterally Eyes General: appearance normal, both eyes and all related structures Neck Neck: Yes normal visual inspection and Yes trachea midline Chest Chest palpation & inspection: normal inspection of the chest Resp Effort & Inspection: normal respiratory effort and able to speak in complete sentences Cardio Rate: regular rate GI Inspection: Yes normal to inspection General: Yes no CVA tenderness Penis: normal penis and uncircumcised Meatus: meatus normal Scrotum: other (Very small area of folliculitis as per HPI ) Testes: Testes normal Back/Spine/Pelvis Back: no CVA tenderness Skin General skin exam: no rashes or lesions noted Neuro General: patient oriented x3 Extrem General: Yes normal to inspection Psych Appearance: grossly normal and well kempt Mental Status: mental status grossly normal Speech and movement: Normal speech and movement present and Clear speech present Affect: normal affect Attitude: cooperative Thought process: Normal thought process present Thought content: Normal thought content present Insight: Fair insight present (Psych) Judgement: Fair judgement present (Psych) Results AMB Urinalysis, Automated UA Leukoctes 0 Cristin/uL Last Edit by [email or web address] on 09/30/23 10:39 UA Nitrite Negative Last Edit by [email or web address] on 09/30/23 10:39 UA Urobilinogen 0.2 mg/dL Last Edit by [email or web address] on 09/30/23 10:39 UA Protein 0 mg/dL Last Edit by [email or web address] on 09/30/23 10:39 UA pH 6.0 Last Edit by [email or web address] on 09/30/23 10:39 UA Blood 0 Valeriy/uL Last Edit by [email or web address] on 09/30/23 10:39 UA Specific Clever 1.025 Last Edit by Natalio Luu on 09/30/23 10:39 UA Ketone Negative Last Edit by Natalio Luu on 09/30/23 10:39 UA Bilirubin 0 mg/dL Last Edit by Natalio Luu on 09/30/23 10:39 UA Glucose 0 mg/dL Last Edit by Natalio Luu on 09/30/23 10:39 Results Reviewed Results Reviewed: Laboratory Last Values Urine pH (Auto) 6.0 09/30/23 10:37 Specific Clever (Auto) 1.025 09/30/23 10:37 Urine Protein (Auto) 0 mg/dL 09/30/23 10:37 Glucose (UA)(Auto) 0 mg/dL 09/30/23 10:37 Urine Ketones (Auto) Negative 09/30/23 10:37 Urine Blood (Auto) 0 Valeriy/uL 09/30/23 10:37 Urine Nitrite (Auto) Negative 09/30/23 10:37 Urine Bilirubin (Auto) 0 mg/dL 09/30/23 10:37 Urine Urobilinogen (Auto) 0.2 mg/dL 09/30/23 10:37 Leukocyte Esterase (Auto) 0 Cristin/uL 09/30/23 10:37 Assessment & Plan Assessment & Plan (1) Folliculitis: Code(s): L73.9 - Follicular disorder, unspecified Plan In office urinalysis results reviewed with the patient today; as noted above. Reassurance provided. Discussed proper hygiene of pubic hair with trimming instead of shaving. Patient currently denies any bothersome urinary issues or concerns. He reports be happy with current voiding parameters. Discussed applying thin layer of Aquaphor to scrotum Follow-up as needed; or sooner with any issues, concerns, and or questions. Orders: Orders AMB Urinalysis Automated 09/30/23 Z13.9 - Encounter for screening, unspecified Patient Instructions: The patient had an opportunity to ask questions regarding the treatment plan. All questions were answered. Physical exam, labs, and imaging were discussed and reviewed in detail. As well as risks, benefits, and discussion of treatment choices. No major barriers to understanding were identified. The patient expressed understanding and agreement with the above treatment plan. The patient was made aware they should contact our office by phone for worsening of their current condition, the appearance of new symptoms, or with any questions or concerns. Compliance is encouraged with any medications and follow up testing that is ordered. It is a privilege to be allowed the opportunity to participate in? your urological care.? Again, if you have any questions or concerns If you have any questions or concerns please do not hesitate to contact me. The office is [phone]. This note is constructed using voice recognition software. While every effort has been made to ensure accuracy mass spec errors may have been included. Yours sincerely, SEAN Arias Coding Level of Care Code New Pt Level 3 (98796) Diagnoses Folliculitis L73.9
== END 2023-09-30 10:43 | disposition home or self-care (01) ==
PROVIDERS: PCP Internal Medicine; Visit Provider Nurse Practitioner Family
DX: L73.9 Follicular disorder, unspecified (principal)
CPT/HCPCS: 99203

== ENCOUNTER → 2023-09-30 09:44 | Outpatient (BNVA) | payer MEDICAID, SELFPAY | PROVIDERS: PCP Internal Medicine; Visit Provider Nurse Practitioner Family | DX: L73.9 Follicular disorder, unspecified (principal) | CPT/HCPCS: 81003; 99212 ==

== ENCOUNTER 2023-12-06 12:41 | Outpatient (REF) | payer MEDICAID, SELFPAY ==
--- NOTE | ~2023-12-06 | XR_ITS ---
EXAMINATION: XR KNEE, RIGHT CLINICAL INFORMATION: Pain. COMPARISON: None TECHNIQUE: AP, lateral, tunnel, and sunrise views of the right knee. FINDINGS: Bones and soft tissues are normal. No fracture or joint effusion. Alignment is anatomic. Joint spaces are well maintained. No abnormal soft tissue calcification. XR/XR knee RT 4V IMPRESSION: Normal knee. EXAMINATION: XR SHOULDER, RIGHT CLINICAL INFORMATION: Pain. COMPARISON: None available. TECHNIQUE: AP external rotation, Grashey, scapular Y, and axillary views of the right shoulder. FINDINGS: The bones and soft tissues are normal. No fracture. Glenohumeral and acromioclavicular alignment is anatomic with normal joint space. No abnormal soft tissue calcifications. IMPRESSION: Normal right shoulder.
--- NOTE | ~2023-12-06 | XR_ITS ---
EXAMINATION: XR KNEE, RIGHT CLINICAL INFORMATION: Pain. COMPARISON: None TECHNIQUE: AP, lateral, tunnel, and sunrise views of the right knee. FINDINGS: Bones and soft tissues are normal. No fracture or joint effusion. Alignment is anatomic. Joint spaces are well maintained. No abnormal soft tissue calcification. XR/XR shoulder RT min 2V IMPRESSION: Normal knee. EXAMINATION: XR SHOULDER, RIGHT CLINICAL INFORMATION: Pain. COMPARISON: None available. TECHNIQUE: AP external rotation, Grashey, scapular Y, and axillary views of the right shoulder. FINDINGS: The bones and soft tissues are normal. No fracture. Glenohumeral and acromioclavicular alignment is anatomic with normal joint space. No abnormal soft tissue calcifications. IMPRESSION: Normal right shoulder.
== END 2023-12-06 12:42 | disposition home or self-care (01) ==
LOC: HO.XRAY 12:41
PROVIDERS: PCP Internal Medicine; Visit Provider Internal Medicine
DX: M25.561 Pain in right knee (principal); M25.511 Pain in right shoulder
CPT/HCPCS: 73030; 73564

== ENCOUNTER 2024-04-24 10:32 | Outpatient (REF) | payer MEDICAID, SELFPAY ==
[2024-04-24 13:04] LABS: MANUAL DIFF FLAG NO
[2024-04-24 13:09] LABS: Basophils Absolute Auto 0.1 X10*3/uL (0.0-0.2); Basophils Percent Auto 0.7 % (0-2); Eosinophils Absolute Auto 0.1 X10*3/uL (0.0-0.4); Eosinophils Percent Auto 1.7 % (0-4); Hematocrit 48.6 % (42.0-52.0); Hemoglobin 15.3 g/dl (14.0-18.0); Imm Gran Abs Auto 0.02 X10*3/uL (0.00-0.03); Imm Gran Pct Auto 0.3 % (0.0-0.4); Lymphocytes Absolute Auto 2.5 X10*3/uL (1.2-4.9); Lymphocytes Percent Auto 34.2 % (20-40); Mean Corpuscular HGB Conc 31.5 g/dl (31.0-36.0); Mean Corpuscular Hemoglobin 28.2 pg (27.0-33.0); Mean Corpuscular Volume 89.5 fL (80.0-98.0); Mean Platelet Volume 9.8 fL (9.4-12.4); Monocytes Absolute Auto 0.4 X10*3/uL (0.1-1.2); Monocytes Percent Auto 5.7 % (2-11); Neutrophils Absolute Auto 4.1 x10*3/uL (2.0-8.3); Neutrophils Percent Auto 57.4 % (45-73); Platelet Count 246 X10*3/uL (160-400); Red Blood Count 5.43 X10*6/uL (4.60-5.80); Red Cell Distribution Width 13.6 % (11.0-16.0); White Blood Count 7.2 X10*3/uL (4.8-10.8)
[2024-04-24 13:16] LABS: Estimated Average Glucose 105 mg/dL; Hemoglobin A1c % 5.3 % (<6.0)
[2024-04-24 13:35] LABS: Alanine Aminotransferase 64 U/L (0-40); Albumin Level 4.6 g/dL (3.5-5.0); Alkaline Phosphatase 87 U/L (39-117); Anion Gap 13 (12-20); Aspartate Amino Transferase 29 U/L (5-37); Bilirubin Total 0.5 mg/dL (0.0-1.0); Blood Urea Nitrogen 12 mg/dL (9-16); C Reactive Protein 0.36 mg/dL (< or = 0.50); Calcium 9.8 mg/dL (8.4-10.2); Carbon Dioxide 27 mmol/L (22-29); Chloride 104 mmol/L (96-108); Estimated Glomerular Filt Rate > 60; Glucose Random 100 mg/dL (60-115); Sodium 140 mmol/L (135-145); Total Protein 7.9 g/dL (6.5-8.0)
== END 2024-04-24 10:33 | disposition home or self-care (01) ==
LOC: HO.10HDL 10:32
PROVIDERS: Visit Provider Internal Medicine
DX: R73.03 Prediabetes (principal); R63.5 Abnormal weight gain; G47.33 Obstructive sleep apnea (adult) (pediatric); R79.89 Other specified abnormal findings of blood chemistry
CPT/HCPCS: 36415; 80053; 82550; 83036; 85025; 86140

== ENCOUNTER → 2024-06-27 10:17 | Outpatient (BNVA) | payer OTHER, SELFPAY | PROVIDERS: PCP Internal Medicine; Visit Provider Internal Medicine | DX: M54.50 Low back pain, unspecified (principal); R20.0 Anesthesia of skin | CPT/HCPCS: 99213 ==

== ENCOUNTER 2024-11-05 08:07 | Emergency (ER) | payer MEDICAID, SELFPAY ==
--- NOTE | ~2024-11-05 | XR_ITS ---
EXAMINATION: XR LUMBOSACRAL SPINE CLINICAL INFORMATION: back pain injury COMPARISON: August 22, 2021. TECHNIQUE: Three views of the lumbosacral spine. FINDINGS: No acute cortical disruption or malalignment. Mild endplate sclerosis at multiple levels from the lower thoracic to the lower lumbar spine. No lytic or blastic lesions. Rudimentary ribs at T12. XR/XR lumbar spine 2-3V IMPRESSION: Mild multilevel thoracolumbar spondylosis. No acute fracture or listhesis. Electronically signed by: Keyon Thomas MD 11/05/2024 08:52 AM [facility]
[2024-11-05 08:15] VITALS: BP 149/92; PULSE 96; RESP 16; TEMP 36.6; O2SAT 100; BMI 40.2
--- NOTE | 2024-11-05 09:13 | ED_ITS ---
HPI - Back Pain/Injury General Chief Complaint: Back Pain/Injury Stated Complaint: back pain Time Seen by Provider: 11/05/24 09:03 Source: patient, RN notes reviewed and old records reviewed Mode of arrival: ambulatory Limitations: no limitations History of Present Illness ED Provider: MELINA FAGAN PA-C HPI Narrative: 34-year-old male with past medical history significant for chronic back pain, ambulates with cane at baseline, presents to the ED today with acute on chronic back pain x4 days. Reports low back pain which began on Tuesday after moving heavy items around his house. Pain came on gradually after this. Initially in his left lower back now radiating to his right lower back. Pain does not radiate down his extremities. Pain is worse with movement. Denies any blunt injury or trauma to the back. She has been taking 800 mg Motrin at home with minimal. Reports history of chronic lower back pain after an accident 2 years ago. He currently follows with his PCP for this and has completed physical therapy. Denies history of spinal surgery. Denies IV drug use. Denies fever, chills, neck pain, bowel or bladder incontinence or retention, numbness/tingling/weakness in the lower extremities, dysuria, hematuria, saddle anesthesia. Related Data Home Medications ?Medication ?Instructions ?Recorded ?Confirmed naproxen 375 mg tablet 375 mg PO BID 09/30/23 10/01/23 Previous Rx's ?Medication ?Instructions ?Recorded cyclobenzaprine 10 mg tablet 10 mg PO TID PRN muscle spasm 7 01/31/22 days #21 tabs cyclobenzaprine 5 mg tablet 5 mg PO Q8H PRN muscle pain #7 tabs 11/05/24 lidocaine 5 % topical patch 1 patch topical DAILY #15 ea 11/05/24 (Lidoderm) prednisone 20 mg tablet 60 mg (3 x 20 mg) PO DAILY 5 days 11/05/24 #15 tabs Allergies Allergy/AdvReac Type Severity Reaction Status Date / Time No Known Allergies Allergy Verified 11/05/24 08:17 Review of Systems Review of Systems: Constitutional: No fever, chills, fatigue, night sweats, weight changes ENT/Mouth: No ear pain, hearing loss, nasal congestion, sinus pain, rhinorrhea, sore throat Eyes: No eye pain, swelling, redness, vision changes, discharge Cardio: No chest pain, palpitations, MCARTHUR, orthopnea, peripheral edema Pulm: No SOB, cough, sputum, wheezing, dyspnea, hemoptysis GI: No nausea, vomiting, hematemesis, abdominal pain, diarrhea, constipation, hematochezia, melena : No irregular bleeding, dysuria, frequency, urgency, hesitancy, hematuria, flank pain, urinary flow changes, urinary incontinence or retention MSK: +back pain, No neck pain, joint pain, myalgias Skin: No lesions, rashes Neuro: No weakness, numbness, paresthesias, LOC, dizziness, headache All other systems reviewed and are negative. [facility] Past Medical History Attestation statement: The following information was validated with the patient. Source: old records reviewed and nursing notes reviewed Medical History Other obesity due to excess calories Obstructive sleep apnea (adult) (pediatric) Tachycardia, unspecified Encounter for general adult medical examination without abnormal findings Low back pain, unspecified Family history of diabetes mellitus Abnormal results of liver function studies Morbid (severe) obesity due to excess calories Essential (primary) hypertension Fatty (change of) liver, not elsewhere classified External otitis of left ear Pre-diabetes No known health problems Social History Social History Alcohol intake: never Advance Directives: No Advance Directives Information Provided: No Physical Exam Vital Signs: Vital Signs: Last Vital Signs Temp 98 F 11/05/24 08:15 Pulse 96 11/05/24 08:15 Resp 16 11/05/24 08:15 BP 149/92 H 11/05/24 08:15 Pulse Ox 100 11/05/24 08:15 O2 Del Method Room Air 11/05/24 08:15 BMI result Body Mass Index 40.2 Vital signs stable, afebrile Const: General: cooperative, healthy appearing, comfortable, no acute distress, alert, awake and Physically active Orientation/consciousness: patient oriented x3 HEENT: Head: Yes normal to inspection, Yes normocephalic and Yes atraumatic Eyes: General: appearance normal, both eyes and all related structures Pupils: Equal, round and reactive pupils present EOM: EOMs intact bilaterally Neck: Other: + no cervical midline spinous tenderness or step-off deformity. Neck: Yes normal visual inspection, Yes full ROM and Yes no meningeal signs Resp: Effort & Inspection: normal respiratory effort Auscultation: clear to auscultation bilaterally Cardio: Rate: regular rate Rhythm: regular rhythm GI: Inspection: Yes normal to inspection Palpation (GI): Soft to palpation and nontender : General: Yes no CVA tenderness Back/Spine/Pelvis: Other: No midline spinous tenderness or step-off deformity. There is bilateral lumbar paraspinal muscle tenderness without fluctuance or warmth. Back: no CVA tenderness Neuro: Other: Strength 5/5 intact throughout.? No saddle anesthesia.? Sensation intact to light touch.? Neurovascular intact distally.? General: patient oriented x3, gait normal and no meningeal signs Cranial nerves: Yes Equal, round and reactive pupils present Gait exam (Neuro): Normal gait present Course Course Course Narrative: X-ray lumbar spine does not demonstrate acute fracture or subluxation. There are chronic degenerative changes. Discussed workup results with patient. Will send prednisone, Flexeril and lidocaine patches to pharmacy for treatment. Given chronic back pain, referral for pain management provided. Advised to follow up with PCP for possible physical therapy. Patient has remained stable throughout ED visit today. Discussed worrisome signs and symptoms and when to return to the ED. All questions answered at this time. Patient is agreeable with disposition and stable for discharge. Medical Decision Making Medical Decision Making MDM Narrative: 34-year-old male with past medical history significant for chronic back pain, ambulates with cane at baseline, presents to the ED today with acute on chronic back pain x4 days. Patient hypertensive, vitals otherwise WNL. He is nontoxic appearing in no acute distress. There is no midline spinous tenderness or step- off deformity. There is bilateral lumbar paraspinal muscle tenderness to palpation without palpable fluctuance, warmth. Sensation intact. No saddle anesthesia. Ambulating with steady gait assisted by cane. Concern for arthritis, MSK sprain/strain, fracture, subluxation, disc herniation, sciatica. Unlikely cord compression, cauda equina, Guillain-[place], epidural abscess. Presentation not consistent with UTI, renal colic, nephrolithiasis, hydronephrosis, pyelonephritis. Plan for imaging and disposition. Differential Diagnosis Differential Diagnoses: The differential diagnosis associated with the presentation includes as above Admission/Observation Not indicated. Independent Interpretation I performed an independent interpretation of an: Plain X-Ray Interpretation: X-ray lumbar spine without acute fracture Radiology Impression Discussion of test interpretation with radiology: I have reviewed the radiologist's reading. Radiologist Impression: Procedure(s): XR lumbar spine 2-3V Accession Number(s): [id number] cc: Mina Holder MD; Radha Ramirez DO~ EXAMINATION: XR LUMBOSACRAL SPINE CLINICAL INFORMATION: back pain injury COMPARISON: August 22, 2021. TECHNIQUE: Three views of the lumbosacral spine. FINDINGS: No acute cortical disruption or malalignment. Mild endplate sclerosis at multiple levels from the lower thoracic to the lower lumbar spine. No lytic or blastic lesions. Rudimentary ribs at T12. XR/XR lumbar spine 2-3V IMPRESSION: Mild multilevel thoracolumbar spondylosis. No acute fracture or listhesis. Electronically signed by: Keyon Thomas MD 11/05/2024 08:52 AM EST External Record Review External record reviewed: Inpatient record Prescription Management I considered prescription management with: Pain Medication and Other (Flexeril, prednisone) Chronic Conditions Patient?s care impacted by: Other (Chronic back pain) Social Determinants Patient?s care significantly limited by Social Determinants of Health including: Other Social Determinant of Health Critical Care Time Critical Care Time Critical Care Time: No Discharge Plan Discharge Clinical Impression: Lumbar back pain Patient Disposition: Home, Self-Care Instructions: Back Pain (ED), Lower Back Exercises (ED) Additional Instructions: You were evaluated in the Emergency Department today for your back pain.? Your evaluation did not show signs of medical conditions requiring emergent intervention at this time. Avoid bending, lifting, or twisting. Use ice several times per day for 20 minutes at a time for the next 48 hours and then change to heat. We recommend you take 600mg ibuprofen every 6 hours or tylenol 650mg every 6 hours as needed for pain. If needed, you can alternate these medications so that you take one medication every 3 hours. For example, at noon take ibuprofen, then at 3pm take tylenol, then at 6pm take ibuprofen. Flexeril is a muscle relaxer. Take this at night as it makes you drowsy. Do not drive, drink alcohol, or operate machinery while taking it. Lidoderm patches are numbing patches. Apply to painful areas. Prednisone as a steroid that has been sent to your pharmacy. Take this as prescribed over the next 5 days. Please schedule an appointment for follow-up with your primary care provider this week for further evaluation of your symptoms. Return to the Emergency Department if you experience worsening back pain, difficulty walking, fevers, numbness, tingling, incontinence, or any other concerning symptoms. In the case of an emergency call 911. Prescriptions: New prednisone 20 mg tablet 60 mg PO DAILY 5 Days Qty: 15 0RF cyclobenzaprine 5 mg tablet 5 mg PO Q8H PRN (Reason: muscle pain) Qty: 7 0RF lidocaine [Lidoderm] 5 % adhesive patch,medicated 1 patch topical DAILY Qty: 15 0RF Rx Instructions: leave on most painful area for up to 12 hrs No Action cyclobenzaprine 10 mg tablet 10 mg PO TID PRN (Reason: muscle spasm) 7 Days Qty: 21 0RF naproxen 375 mg tablet 375 mg PO BID Referrals: [facility] [place] Pain Management [Provider Group] Mina Holder MD [Primary Care Provider] - Print Language: Irish
--- NOTE | 2024-11-05 09:33 | PC.NURSE ---
pt was seen and discharged by the provider with prescriptions sent. Pt agreeable to discharge plan
[2024-11-05 09:34] VITALS: BP 149/92; PULSE 96; RESP 16; TEMP 36.6; O2SAT 100
--- OUTSIDE RECORDS SUMMARY | 2024-11-05 10:05 | XMS_ITS | Clinical Summary ---
Author Organization [facility] it Address [address] [place] [address] Care Team Providers Care Doctor Of Radiology Name Role Phone Mina Holder MD Primary Care Provider [phone] Allergies No known active allergies Medications ibuprofen (ADVIL,MOTRIN) 800 mg tablet Take 1 tablet (800 mg total) by mouth every 8 (eight) hours if needed. Active Active Problems Problem Noted Date Diagnosed Date Obstructive sleep apnea 11/01/2019 Overview (08/13/2024): [facility] Home Sleep Apnea Test: Date 10/31/2019; Wt 208#; BMI 31; MANUELITO 13, AI 5; HI 8; Unclassified apneas 0; Obstructive apneas 25; Central apneas 0; Mixed apneas 0; hypopneas 42; average oxygen saturation 94% (lowest 74% without saturations <88% for 5% or more of study) - Obstructive Sleep Apnea - mild; mostly hypopneas and obstructive apneas; without sleep related hypoventilation by 2019 home sleep apnea test. Fatty liver 05/18/2019 Obesity (BMI 30-39.9) 10/02/2013 Immunizations Name Administration Dates Next Due Influenza trivalent, 0.5mL, preservative free (Fluarix; FluLaval; Fluzone) ages 6mo and older (Afluria) 3 years and older 07/08/2014 Influenza, Unspecified 06/05/2019 MMR, measles mumps and rubel la Live (Priorix; M-M-R II) 12mo and older 07/24/2014 Tdap Tetanus diptheria acell ular pertussis (Boostrix; Adacel) 7yo and older 01/30/2014 Surgical History Surgery Date Site/Laterality Comments OTHER SURGICAL HISTORY PROCEDURE: DENIES PREVIOUS SURGERY Family History Medical History Relation Name Comments Hypertension Brother age 23 Hypertension Father Asthma Mother Relation Name Status Comments Brother Father Alive htn, Mother Alive Social History Tobacco Use Types Packs/Day Years Used Date Smoking Tobacco: Never Smokeless Tobacco: Never Alcohol Use Standard Drinks/Week Comments Yes 0 (1 standard drink = 0.6 oz pur e alcohol) Sex and Gender Information Value Date Recorded Sex Assigned at Not on file Legal Sex Male 9:17 AM EST Gender Identity Not on file Sexual Orientation Not on file Obstetrics History Last Filed Vital Signs Vital Sign Reading Time Taken Comments Blood Pressure 112/78 05/18/2024 9:01 AM EDT Sitting L Arm Pulse 89 05/18/2024 9:01 AM EDT Temperature - - Respiratory Rate - - Oxygen Saturation - - Inhaled Oxygen Concentration - - Weight 129 kg (285 lb 6.4 oz) 9:01 AM EDT Height 175.3 cm (5' 9 ) 05/18/2024 9:01 AM EDT Body Mass Index 42.15 05/18/2024 9:01 AM EDT Plan of Treatment Upcoming Encounters Date Type Department Care Team (Late st Contact Info) Description 11/16/2024 9:30 AM EDT Office Visit Pulmonolgy - [place] [address] [facility] [address] [place] [id number] Adams Grimaldo MD [address] [facility] [address] [facility] [address] [place] [address] Health Maintenance Due Date Last Done Comments Hepatitis B Vaccines (1 of 3 - 19+ 3-dose series) 2008 Pneumococcal Vaccine: Pediatrics (0 to 5 Years) and At-Risk Patients (6 to 64 Years) (1 of 2 - PCV) 2008 Depression Screening 08/14/2022 Social Influencers of Health Screening 08/14/2022 Cholesterol Screening (Lipid Panel) 11/07/2022 11/07/2017 DTaP,Tdap,and Td Vaccines (2 - Td or Tdap) 01/31/2024 01/30/2014 COVID-19 Vaccine ( - 2023-2 5 season) 2024 Influenza Vaccine (#1) 2024 9, 07/08/2014 MMR Vaccines Aged Out 07/24/2014 No longer eligi ble based on patient's age to complete this topic HIV Screening Completed 05/18/2019 Hepatitis C Screening Completed 05/18/2019 HIB Vaccines Aged Out No longer eligi ble based on patient's age to complete this topic HPV Vaccines Aged Out No longer eligi ble based on patient's age to complete this topic Hepatitis A Vaccines Aged Out No long er eligible based on patient's age to complete this topic IPV Vaccines Aged Out No longer eligi ble based on patient's age to complete this topic Meningococcal ACWY Vaccine Aged Out N o longer eligible based on patient's age to complete this topic Meningococcal B Vacine Aged Out No lo nger eligible based on patient's age to complete this topic RSV Immunization Patients Under 20 months Aged Out No longer eligible b ased on patient's age to complete this topic Varicella Vaccines Aged Out No longer eligible based on patient's age to complete this topic Procedures Procedure Name Priority Date/Time Associated Diagnosis Comments HEPATITIS C SCREENING Routine 05/18/2019 HIV SCREENING Routine 05/18/2019 LIPID PANEL Routine 11/07/2017 from Last 3 Months or Most Recently Relevant to Health Maintenance Results * HIV Screening (05/18/2019) Pathologist [facility] HIV Screening abstracted [facility] Provider HEALTH MAINTENANCE Final Result * Hepatitis C Screening (05/18/2019) [facility] Hepatitis C Screening abstracted Historical Provider HEALTH MAINTENANCE Final Result * (ABNORMAL) Lipid panel (11/07/2017) [facility] LDL/HDL Ratio 4 0 - 4 Triglycerides 288(A) 0 - 150 mg/dL Cholesterol 204(A) 0 - 200 mg/dL HDL 51 >=40 mg/dL LDL Cholesterol 96 0 - 100 mg/dL Blood Venous blood specimen / Unknown Historical Provider LAB BLOOD ORDERABLES Wendy l Result from Last 3 Months or Most Recently Relevant to Health Maintenance Care Teams Doctor Of Radiology Relationship Specialty Start Date End Date Mina Holder MD [address] [place] [address] Dr Elizabeth MA PCP - General Internal Medicine 07/14/21
== END 2024-11-05 09:34 | disposition home or self-care (01) ==
PROVIDERS: Emergency Provider Emergency Medicine; PCP Internal Medicine
DX: M54.50 Low back pain, unspecified (principal); I10 Essential (primary) hypertension
CPT/HCPCS: 72100; 99282; 99283

== ENCOUNTER → 2024-11-05 08:24 | Outpatient (BNV) | payer MEDICAID, SELFPAY | PROVIDERS: Emergency Provider Emergency Medicine; PCP Internal Medicine; Visit Provider Radiology Diagnostic Radiology | DX: S39.92XA Unspecified injury of lower back, initial encounter (principal) | CPT/HCPCS: 72100 ==

== ENCOUNTER 2025-01-07 09:18 | Emergency (ER) | payer OTHER, SELFPAY ==
[2025-01-07 09:28] VITALS: BP 121/75; PULSE 86; RESP 18; TEMP 36.6; O2SAT 99; BMI 40.8
--- NOTE | 2025-01-07 11:31 | ED.BACK ---
HPI - Back Pain/Injury General Chief Complaint: Back Pain/Injury Stated Complaint: lower back pain Time Seen by Provider: 01/07/25 11:42 Source: patient and RN notes reviewed Mode of arrival: ambulatory Limitations: no limitations History of Present Illness ED Provider: Susie Carey PA-C HPI Narrative: This is a 34-year-old male, with no known medical problems, who presents emergency department with complaints of acute on chronic back pain for the last 4-5 days. Patient states that the pain in his back stays in his back, denies any radicular pain. No numbness tingling or weakness. Pain worsens with movement. Patient reports that he has had ongoing back pain for several years after a work-related injury. He denies any recent injury or trauma. He states that he was previously prescribed ibuprofen and naproxen which he ran out of. He denies any urinary or bowel retention or incontinence. No saddle anesthesia. No lower extremity weakness. No urinary symptoms. No fevers, chills current chest pain, shortness for breath, abdominal pain. No other complaints or concerns at this time. MD elicited complaint: back injury Pertinent past history: prior back pain Onset (ago): day(s) Timing: constant Severity: moderate Similar Symptoms Previously: Yes Quality: aching Location: lumbar spine Radiation: none Exacerbating factors: movement Relieving factors: none Associated symptoms: denies other symptoms Work related injury: No Related Data Home Medications ?Medication ?Instructions ?Recorded ?Confirmed naproxen 375 mg tablet 375 mg PO BID 09/30/23 10/01/23 Previous Rx's ?Medication ?Instructions ?Recorded cyclobenzaprine 10 mg tablet 10 mg PO TID PRN muscle spasm 7 01/31/22 days #21 tabs cyclobenzaprine 5 mg tablet 5 mg PO Q8H PRN muscle pain #7 tabs 11/05/24 lidocaine 5 % topical patch 1 patch topical DAILY #15 ea 11/05/24 (Lidoderm) prednisone 20 mg tablet 60 mg (3 x 20 mg) PO DAILY 5 days 11/05/24 #15 tabs acetaminophen 500 mg tablet 1,000 mg (2 x 500 mg) PO QID PRN 01/07/25 (Tylenol Extra Strength) pain #30 tabs lidocaine 5 % topical patch 1 patch topical DAILY #30 ea 01/07/25 naproxen 500 mg tablet 500 mg PO BID #30 tabs 01/07/25 Allergies Allergy/AdvReac Type Severity Reaction Status Date / Time No Known Allergies Allergy Verified 01/07/25 09:31 Review of Systems Review of Systems: Constitutional: No Weight loss, No Fever, No Chills, No Night Sweats, No Fatigue, No Malaise ENT/Mouth: No Hearing loss, No Ear Pain, No Nasal Congestion, No Sinus Pain, No Hoarseness, No sore throat, No Rhinorrhea, No Swallowing Difficulty Eyes: No Eye Pain, No Swelling, No Redness, No Foreign Body, No Discharge, No Vision Changes Cardiovascular: No Chest Pain, No SOB, No Dyspnea on Exertion, No Orthopnea, No Edema, No Palpitations Respiratory: No Cough, No Sputum, No Wheezing, No Smoke Exposure, No Dyspnea Gastrointestinal: No Nausea, No Vomiting, No Diarrhea, No Constipation, No Abdominal pain, No Hematochezia, No Melena Genitourinary: No irregular bleeding, No Dysuria, No Urinary Frequency, No Hematuria, No Urinary Incontinence/retention, No Urgency, No Flank Pain, No Urinary Flow Changes, No Hesitancy Musculoskeletal: No joint pain, No Myalgias, No Joint Swelling Skin: No Skin Lesions, No rash Neuro: No Weakness, No Numbness, No Paresthesias, No Loss of Consciousness, No Dizziness, No Headache Psych: No Anxiety/Panic, No Depression, No SI/HI/AH/VH, No Social Issues, Heme/Lymph: No Bruising, No Bleeding,No Lymphadenopathy Endocrine: No Polyuria, No Polydipsia, No Temperature Intolerance Yes all other systems are reviewed and are negative Constitutional: Constitutional: Reports as per [facility] Past Medical History Attestation statement: The following information was validated with the patient. Medical History Other obesity due to excess calories Obstructive sleep apnea (adult) (pediatric) Tachycardia, unspecified Encounter for general adult medical examination without abnormal findings Low back pain, unspecified Family history of diabetes mellitus Abnormal results of liver function studies Morbid (severe) obesity due to excess calories Essential (primary) hypertension Fatty (change of) liver, not elsewhere classified External otitis of left ear Pre-diabetes No known health problems Social History Social History Alcohol intake: never Advance Directives: No Advance Directives Information Provided: No Physical Exam Vital Signs: Vital Signs: Last Vital Signs Temp 96.9 F 01/07/25 11:40 Pulse 82 01/07/25 11:40 Resp 16 01/07/25 11:40 BP 140/77 H 01/07/25 11:40 Pulse Ox 100 01/07/25 11:40 O2 Del Method Room Air 01/07/25 11:40 BMI result Body Mass Index 40.8 Const: General: cooperative, comfortable and no acute distress Orientation/consciousness: patient oriented x3 Limitations: no limitations HEENT: Head: Yes normal to inspection, Yes normocephalic and Yes atraumatic Ears: hearing grossly normal bilaterally General nose exam: Normal external nose present Face and sinus: Yes normal facial exam Mouth: Normal oral and palatal mucosa present, oropharynx normal and moist mucous membranes Throat: Yes posterior oropharynx normal Eyes: General: appearance normal, both eyes and all related structures Eyelids: Yes eyelids normal Conjunctivae: conjunctivae normal Sclerae: sclerae normal Pupils: Equal, round and reactive pupils present EOM: EOMs intact bilaterally Neck: Neck: Yes normal visual inspection, Yes full ROM and Yes no lymphadenopathy Lymphatic: no lymphadenopathy noted Chest: Chest palpation & inspection: normal inspection of the chest Resp: Effort & Inspection: normal respiratory effort and able to speak in complete sentences Auscultation: clear to auscultation bilaterally, no crackles, no rales, no rhonchi and no wheezes Cardio: Rate: regular rate Rhythm: regular rhythm Heart sounds: S1 normal heart sound present and S2 normal heart sound present GI: Inspection: Yes normal to inspection Back/Spine/Pelvis: Other: Patient with tenderness palpation along the lumbar paraspinous muscles bilaterally. Patient ambulatory, strength 5/5 in LE bilaterally. Distal sensation circulation intact Cervical Spine: normal cervical lordosis Thoracic/Lumbar Spine: thoracic and lumbar spine normal to inspection Skin: General skin exam: no rashes or lesions noted Trauma: no lacerations or abrasions Wounds: no wounds Neuro: General: patient oriented x3 and moves all extremities Cranial nerves: Yes Equal, round and reactive pupils present Extrem: General: Yes normal to inspection Right upper extremity: normal to inspection Left upper extremity: normal to inspection Right lower extremity: normal to inspection Left lower extremity: normal to inspection Medical Decision Making Medical Decision Making MDM Narrative: This is a 34-year-old male who presents emergency department with complaints of low back pain. Patient has a history of chronic back pain and states that over the last several days his back pain has worsened. He currently was prescribed ibuprofen, and then he was prescribed naproxen. 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 New injury or trauma. This patient presents with back pain most consistent with lumbago. Differential diagnoses includes lumbago versus musculoskeletal spasm / strain versus sciatica.No back pain red flags on history or physical. Presentation not consistent with malignancy (lack of history of malignancy, lack of B symptoms), fracture (no trauma, no bony tenderness to palpation), cauda equina syndrome (no bowel or urinary incontinence/retention, no saddle anesthesia, no distal weakness), renal colic, pyelonephritis (afebrile, no CVAT, no urinary symptoms). Patient had an x-ray of his lumbar spine in November 2024 which revealed mild multilevel thoracolumbar spondylosis, no acute fracture or listhesis. Given no new injury or trauma deferring imaging at this time. Will discharge on naproxen and given lidocaine patches as well as Tylenol. Given strict return precautions. Patient stable for discharge. Differential Diagnosis Differential Diagnoses: The differential diagnosis associated with the presentation includes See above Discharge Plan Discharge Clinical Impression: Chronic back pain Patient Disposition: Home, Self-Care Instructions: Back Pain (ED) Additional Instructions: You were seen in the ER due to back pain. Please follow up with your primary care physician on . Take tylenol, naproxen and use lidocaine patches as prescribed. Gentle stretching, heat or ice can help. If any new or worsening symptoms occur, including increased pain, chest pain, shortness of breath, loss of bladder or bowel control, please return. Prescriptions: New naproxen 500 mg tablet 500 mg PO BID Qty: 30 0RF acetaminophen [Tylenol Extra Strength] 500 mg tablet 1,000 mg PO QID PRN (Reason: pain) Qty: 30 0RF lidocaine 5 % adhesive patch,medicated 1 patch topical DAILY Qty: 30 0RF Rx Instructions: leave on most painful area for up to 12 hrs No Action cyclobenzaprine 10 mg tablet 10 mg PO TID PRN (Reason: muscle spasm) 7 Days Qty: 21 0RF prednisone 20 mg tablet 60 mg PO DAILY 5 Days Qty: 15 0RF cyclobenzaprine 5 mg tablet 5 mg PO Q8H PRN (Reason: muscle pain) Qty: 7 0RF lidocaine [Lidoderm] 5 % adhesive patch,medicated 1 patch topical DAILY Qty: 15 0RF Rx Instructions: leave on most painful area for up to 12 hrs naproxen 375 mg tablet 375 mg PO BID Interventions: ED Discharge Assessment Last Done: 01/07/25 11:40 Discharge Date/Time: 01/07/25 11:42 Print Language: Macedonian
[2025-01-07 11:40] VITALS: BP 140/77; PULSE 82; RESP 16; TEMP 36.1; O2SAT 100
--- OUTSIDE RECORDS SUMMARY | 2025-01-07 13:31 | XMS_ITS | Clinical Summary ---
Author Organization [address] [facility] Address [address] [place] [address] Phone Care Team Providers Care Wooden Barrel Mechanic Name Role Phone Mina Holder MD Primary Care Provider [phone] Allergies No known active allergies Medications ibuprofen (ADVIL,MOTRIN) 800 mg tablet Take 1 tablet (800 mg total) by mouth every 8 (eight) hours if needed. Active Active Problems Problem Noted Date Diagnosed Date Obstructive sleep apnea 11/01/2019 Overview (08/13/2024): [facility] Home Sleep Apnea Test: Date 10/31/2019; [...] Fatty liver 05/18/2019 Obesity (BMI 30-39.9) 10/02/2013 Encounters Date Type Department Care Team Description 12/10/2024 Telephone Pulmonolgy - [place] [address] [facility] [address] [place] [address] Adams Grimaldo MD durable medical equipment from Last 3 Months Immunizations Name Administration Dates Next Due Influenza [...] Care Team (Late st Contact Info) Description 03/18/2025 2:15 PM EDT Office Visit Pulmonolgy - [place] [address] [facility] [address] [place] [id number] Adams Grimaldo MD [address] [facility] [address] [place] [address] Health Maintenance Due Date Last Done Comments [...] Td or Tdap) 01/31/2024 01/30/2014 COVID-19 Vaccine (1 - 2023-2 5 season) 2024 Influenza Vaccine (Season Ended) 2025 06/05/2019, 07/08/2014 MMR Vaccines Aged Out 07/24/2014 No [...] age to complete this topic Meningococcal B Vaccine Aged Out No l onger eligible based on patient's age to complete [...] Health Maintenance Results * HIV Screening (05/18/2019) HIV Screening abstracted Historical Provider HEALTH MAINTENANCE Final Result * Hepatitis C Screening (05/18/2019) Hepatitis C Screening abstracted us Historical Provider HEALTH MAINTENANCE Final Result * (ABNORMAL) Lipid panel (11/07/2017) LDL/HDL Ratio 4 0 - 4 Triglycerides 288(A) 0 - 150 mg/dL Cholesterol 204(A) 0 - 200 mg/dL HDL 51 >=40 mg/dL LDL Cholesterol 96 0 - 100 mg/dL Blood Venous blood specimen / Unknown us Historical Provider LAB BLOOD ORDERABLES Wendy l Result from Last 3 Months or Most Recently Relevant to Health Maintenance Insurance MEDICAID - [place] Care Teams Wooden Barrel Mechanic Relationship Specialty Start Date End Date Mina Holder MD [address] [place] [address] Dr Johnson [place] PCP - General Internal Medicine 07/14/21
== END 2025-01-07 11:42 | disposition home or self-care (01) ==
LOC: HO.ED 11:42
PROVIDERS: Emergency Provider Emergency Medicine; PCP Physician Assistant Medical
DX: M54.50 Low back pain, unspecified (principal)
CPT/HCPCS: 99282; 99283